=== PATIENT | male | born 1980 | race Caucasian/White ===

== ENCOUNTER 2016-07-07 19:28 | Emergency (ER) | payer OTHER ==
[~2016-07-07] VITALS: Ht 170.2 cm; Wt 89.6 kg
[~2016-07-07 19:28] MED LIST: ALPRAZOLAM1 MG PO; CLEOCIN300 MG PO; INDERAL LA120 MG PO; INDERAL20 MG PO; KEFLEX500 MG PO; METHADOSE40 MG PO; METHIMAZOLE; MOTRIN600 MG PO; NEURONTIN300 MG PO; OPANA ER40 MG PO; OXYCODONE; OXYCODONE15 MG PO; PROPYLTHIOURACI50 M1 PO; SERTRALINE HCL100 MG PO; XANAX1 MG PO; ZOLOFT100 MG PO
[2016-07-07] MEDS ORDERED: NAPROSYN500 MG PO (22:37)
[2016-07-07] MEDS ORDERED: FLEXERIL10 MG PO ×2 (22:37→22:41)
[2016-07-07] MEDS ORDERED: NAPROXEN500 MG PO (22:41)
[2016-07-07 22:54] VITALS: BP 104/67
== END 2016-07-07 22:58 | disposition home or self-care (01) ==
LOC: RME 19:28 → EME 19:28 → RME 22:58
DX: M54.5 Low back pain (principal); I10 Essential (primary) hypertension; Y09 Assault by unspecified means; W00.0XXA Fall on same level due to ice and snow, initial encounter
CPT/HCPCS: 72100; 99281; 99284